=== PATIENT | female | born 1975 | race Caucasian/White ===

== ENCOUNTER 2017-06-02 22:16 | Emergency (ER) | payer OTHER ==
[~2017-06-02] VITALS: Ht 157.5 cm; Wt 81.0 kg
[~2017-06-02 22:16] MED LIST: ATARAX,VISTARIL25 MG PO; FLEXERIL10 MG PO; NAPROSYN500 MG PO; PREDNISONE20 MG PO; TYLENOL WITH C1 EACH PO
[2017-06-03 04:00] VITALS: BP 98/57
[2017-06-03] MEDS ORDERED: NORCO 5/3251 TABLET PO (04:12)
[2017-06-03] MEDS ORDERED: LIDODERM 5% P1 PATCH TD (04:12)
== END 2017-06-03 05:40 | disposition home or self-care (01) ==
LOC: EME 22:16
DX: M54.5 Low back pain (principal); W10.9XXA Fall (on) (from) unspecified stairs and steps, initial encounter; W54.1XXA Struck by dog, initial encounter; Z87.891 Personal history of nicotine dependence
CPT/HCPCS: 72131; 81003; 99281; 99284

== ENCOUNTER 2017-12-25 13:55 | Emergency (ER) | payer OTHER ==
[~2017-12-25] VITALS: Ht 160 cm; Wt 87.0 kg
[~2017-12-25 13:55] MED LIST changes: +FIORICET,ESG1 TABLET PO; +LIDODERM 5% P1 PATCH TD; +NORCO 5/3251 TABLET PO
[2017-12-25 14:12] VITALS: BP 102/79
[2017-12-25] MEDS ORDERED: NAPROXEN500 MG PO (16:49)
== END 2017-12-25 17:00 | disposition home or self-care (01) ==
LOC: EME 13:55
DX: S60.221A Contusion of right hand, initial encounter (principal); W22.09XA Striking against other stationary object, initial encounter; J45.909 Unspecified asthma, uncomplicated; E78.5 Hyperlipidemia, unspecified; Z87.891 Personal history of nicotine dependence
CPT/HCPCS: 73130; 99281; 99284

== ENCOUNTER 2018-01-16 18:45 | Emergency (ER) | payer OTHER ==
[~2018-01-16] VITALS: Ht 157.5 cm; Wt 87.5 kg
[~2018-01-16 18:45] MED LIST changes: +NAPROXEN500 MG PO
[2018-01-16 19:42] VITALS: BP 118/76
[2018-01-16 20:16] LABS: HEMATOCRIT 42.5 % (36.0-46.0); MCH 27.5 PG (29.0-34.0); MCHC 32.9 G/DL (30.0-36.0); MCV 83.5 FL (83-99); PLATELET COUNT 330 K/uL (156-360); RBC DIS.WIDTH-CV 12.2 % (11.8-14.6); RBC DIS.WIDTH-SD 37.2 % (39-53); RED BLOOD COUNT 5.09 M/uL (3.80-5.20)
[2018-01-16 20:43] LABS: CHLORIDE 104 MEQ/L (99-109); CREATININE 0.8 MG/DL (0.6-1.3); GFR ESTIMATE (CALCULATED) > 59 mL/min/; GLUCOSE 93 mg/dL (70-99); SODIUM 137 MEQ/L (136-147); UREA NITROGEN (BUN) 16 mg/dL (9-23)
== END 2018-01-16 23:12 | disposition left against medical advice (07) ==
LOC: EME 18:45
DX: R05 Cough (principal); R09.3 Abnormal sputum; Z53.21 Procedure and treatment not carried out due to patient leaving prior to being seen by health care provider
CPT/HCPCS: 71046; 80048; 85027

== ENCOUNTER 2018-04-19 07:38 | Emergency (ER) | payer OTHER ==
[~2018-04-19] VITALS: Ht 157.5 cm; Wt 87.0 kg
[2018-04-19 07:45] VITALS: BP 103/75
== END 2018-04-19 09:08 | disposition home or self-care (01) ==
LOC: EME 07:38
PROC: 0HQGXZZ Repair Left Hand Skin, External Approach (ICD-10-PCS; principal; 2018-04-19)
PROC: 2W3KX1Z Immobilization of Left Finger using Splint (ICD-10-PCS; 2018-04-19)
DX: S61.211A Laceration without foreign body of left index finger without damage to nail, initial encounter (principal); W26.8XXA Contact with other sharp object(s), not elsewhere classified, initial encounter; Y99.0 Civilian activity done for income or pay; J45.909 Unspecified asthma, uncomplicated; Z87.891 Personal history of nicotine dependence; Z91.040 Latex allergy status
CPT/HCPCS: 99281; 99283